=== PATIENT | male | born 1965 | race Caucasian/White ===

== ENCOUNTER 2021-01-29 11:43 | Inpatient (IN) | payer MEDICAID, SELFPAY ==
[2021-01-29] VITALS (7 sets, daily range): BP systolic 106–146; BP diastolic 82–99; PULSE 91–110; RESP 16–22; TEMP 36.7–37.1; O2SAT 94–97; BMI 22.7
--- NOTE | ~2021-01-29 | US_ITS ---
EXAMINATION: US GUIDED PARACENTESIS CLINICAL INFORMATION: Moderate ascites. COMPARISON: None TECHNIQUE: Following explaining ultrasound-guided paracentesis procedure, benefits and risks, a written consent was obtained. Patient was placed supine and preliminary ultrasound imaging was obtained through the 4 quadrants of the abdomen. An optimal site was selected along the right lower quadrant and marked. The marked site was cleaned and draped in usual sterile manner. 1% lidocaine was injected at puncture site. Through a small skin incision a 5-Irish dermSearcheh catheter was advanced into the peritoneal space. After observing fluid return, stylet was withdrawn and catheter connected to vacuum bottle via a connecting cannula. After obtaining all fluid and observing no more fluid return, the catheter was removed with complete hemostasis achieved at puncture site. Patient tolerated procedure extremely well. Sterile dressing applied postprocedure. FINDINGS: On preliminary ultrasound imaging, there is [id number] ascites noted. Approximately 4.65 L of clear yellowish fluid was drained from the right lower quadrant. Part of this fluid was sent to lab for further analysis. US/US paracentesis abd w/image IMPRESSION: Successful ultrasound-guided paracentesis with approximately 4.65 L of clear yellowish fluid drained.
--- NOTE | ~2021-01-29 | CT_ITS ---
EXAMINATION: CT ABDOMEN AND PELVIS WITH CONTRAST CLINICAL INFORMATION: Abdominal pain ascites and jaundice. COMPARISON: None TECHNIQUE: Multidetector volumetric images were obtained from the superior aspect of the liver through the pubic symphysis following administration 85 mL of Omnipaque 350 intravenous contrast. Sagittal and coronal reformatted images were obtained on the technologist's workstation. Oral contrast: No This CT examination was performed using dose optimization techniques as appropriate, variously including the following: *Automated exposure control *Adjustment of mA and/or kV according to patient size (this includes techniques or standardized protocols for targeted exams where dose is matched to indication/reason for exam; i.e. extremities or head) *Use of iterative reconstruction technique DLP: 484 mGy-cm FINDINGS: LUNG BASES: There is minimal atelectatic changes in the right lung base with minimal pleural effusion or pleural thickening. Heart size is normal. LIVER, GALLBLADDER, AND BILIARY TREE: The liver is normal size, diffusely attenuated with mild lobulated contour. The liver is heterogeneous with no definite focal mass seen. The portal vein and the splenic vein is patent. The hepatic vein is patent as well. There is a large amount of ascites. The gallbladder is unremarkable with no evidence of radiopaque gallstones, gallbladder wall thickening, or obvious pericholecystic inflammatory changes. PANCREAS: Unremarkable. SPLEEN: Unremarkable. ADRENAL GLANDS: Unremarkable. KIDNEYS AND URETERS: The kidneys are normal in size, shape, and attenuation. No hydronephrosis, hydroureter, or calculi seen. No perinephric stranding. BLADDER: Unremarkable. GASTROINTESTINAL TRACT: There is scattered stool and gas seen throughout the colon without any significant distention. There is mild mural thickening involving the entire colon. The small bowel loops are normal caliber. Appendix is not visualized. There is large amount of ascites. No free air. ABDOMINAL WALL: No significant hernia is appreciated. LYMPH NODES: Normal. VASCULAR: Unremarkable. PELVIC VISCERA: Mild thickening of the rectum and the sigmoid colon. OSSEOUS STRUCTURES: No lytic or sclerotic process seen. There is mild ventral spondylosis L3-L4, L4-L5 disc level. CT/CT abdomen pelvis w con IMPRESSION: Diffuse heterogeneous liver with slightly lobulated liver contour and diffuse large ascites. Minimal right lower lobe atelectasis with underlying small right pleural effusion. Diffuse colonic mural thickening, nonspecific. Question inflammatory or infectious colitis. No pericolic fat stranding seen however limited in visualization
--- NOTE | 2021-01-29 12:18 | ECG_ITS ---
Test Reason : ABD PAIN Blood Pressure : / mmHG Vent. Rate : 090 BPM Atrial Rate : 090 BPM P-R Int : 128 ms QRS Dur : 092 ms QT Int : 406 ms P-R-T Axes : 033 032 065 degrees QTc Int : 496 ms Normal sinus rhythm Low voltage QRS Nonspecific T wave abnormality Prolonged QT Abnormal ECG No previous ECGs available Referred By: Janina Johns Electronically Signed By:CARLOS ROCK
--- NOTE | 2021-01-29 12:29 | ED.ABDPAIN ---
HPI - Abdominal Pain General Chief Complaint: Abdominal Pain Stated Complaint: abd issues Time Seen by Provider: 01/29/21 12:17 Source: patient Mode of arrival: ambulatory Limitations: no limitations History of Present Illness HPI narrative: drinks vodka daily, swollen eyes, feet, yellow eyes x 1.5 months has not been to a doctor since he was a child, family had a hard time getting him here, no APAP at home MD elicited complaint: abdominal pain Pertinent past history: other (heavy drinkiner) Onset (ago): month(s) (1.5) Pain Consistency: constant Location: diffuse Severity: moderate Quality: aching Radiation: none Migration to: no migration Exacerbating factors: movement Relieving factors: nothing Context: other (alcoholism) Associated symptoms: nausea and other (LE swelling, yellow eyes) Related Data Home Medications Medication Instructions Recorded Confirmed No Known Home Meds 01/29/21 01/29/21 Allergies Allergy/AdvReac Type Severity Reaction Status Date / Time No Known Allergies Allergy Verified 01/29/21 11:49 Review of Systems Review of Systems Constitutional : No Weight loss, No Fever, No Chills ENT/Mouth : No sore throat, No Rhinorrhea Eyes: No Swelling, No Redness, pos scleral icterus Cardiovascular : No Chest Pain, No SOB, pos Edema Respiratory : No Cough, No Sputum, No Wheezing Gastrointestinal : no Nausea, no Vomiting, no Diarrhea, positive abdominal Pain, No Hematochezia, No Melena Genitourinary : No Dysuria, No Urinary Frequency, No Hematuria, No Urgency Musculoskeletal : No joint pain, No Myalgias, No Joint Swelling Skin : No Skin Lesions, No rash Neuro : No Weakness, No Numbness, No Dizziness, No Headache Psych : No Anxiety/Panic, No Depression Heme/Lymph: No Bruising, No Lymphadenopathy Endocrine : No Polyuria, No Polydipsia All other systems reviewed and are negative. Physical Exam Vital Signs: Vital Signs: Last Vital Signs Temp 98.1 F 01/29/21 15:55 Pulse 91 01/29/21 15:55 Resp 18 01/29/21 15:55 BP 114/82 01/29/21 15:55 Pulse Ox 95 01/29/21 15:55 Body Mass Index 22.7 Appearance: Alert. Oriented X3. No acute distress. Anxious Eyes: Pupils equal, round and reactive to light. scleral icterus ENT: Pharynx normal. Neck: Normal inspection. Neck supple. CVS: Normal heart rate and rhythm. Pulses normal. Respiratory: No respiratory distress. Breath sounds normal. Abdomen: Soft and distended with ascites, no sig pain no rebound or guarding Skin: Skin warm and dry. Normal skin color. Normal skin turgor. Extremities: trace bilateral pitting lower extremity edema. No calf ttp Neuro: Oriented X 3. No motor deficit. No sensory deficit. Course Course Course Narrative: lactic acidosis due to liver dysfunction, ETOH abuse and not infection or severe sepsis agrees to stay overnight for further workup I don't think he will be able to follow up as outpatient as he has not seen a doctor in about 30 years MDM - Abdominal Pain MDM Narrative Medical decision making narrative: 56 yo male with no known PMH because he hasn't been to the doctors since childhood comes in with c/o ETOH use, jaundice, swollen abdomen x 1.5 months he finally agreed to get checked out today. At this time labs, CT scan for mass ordered. Likely cirrhosis due to ETOH. Will likely need admission dispo per results and workup Lab Data Result diagrams: 01/29/21 13:01 01/29/21 13:01 Labs: Lab Results 01/29/21 01/29/21 01/29/21 Range/Units 13:01 13:01 13:01 WBC 10.6 (4.8-10.8) X10*3/uL RBC 4.32 L (4.60-5.80) X10*6/uL Hgb 15.9 (14.0-18.0) g/dl Hct 45.3 (42-52) % MCV 104.9 H (80-98) fL MCH 36.8 H (27.0-33.0) pg MCHC 35.1 (31.0-36.0) g/dl RDW 13.8 (11.0-16.0) % Plt Count 155 L (160-400) X10*3/uL MPV 11.4 (9.4-12.4) fL Immature Gran % (Auto) 0.6 H (0.0-0.4) % Neut % (Auto) 67.5 (45-73) % Lymph % (Auto) 21.4 (20-40) % [place] % (Auto) 9.6 (2-11) % Eos % (Auto) 0.1 (0-4) % Baso % (Auto) 0.8 (0-2) % Lymph # (Auto) 2.3 (1.2-4.9) X10*3/uL [place] # (Auto) 1.0 (0.1-1.2) X10*3/uL Eos # (Auto) 0.0 (0.0-0.4) X10*3/uL Baso # (Auto) 0.1 (0.0-0.2) X10*3/uL Abs Immat Gran (auto) 0.06 H (0.00-0.03) X10*3/uL Absolute Neuts (auto) 7.2 (2.0-8.3) X10*3/uL Absolute Nucleated RBC 0.000 (0.0-0.012) X10*3/uL Nucleated RBC % (auto) 0.0 (0.0-0.2) /100WBC PT 13.0 (9.9-13.0) SEC INR 1.1 (0.9-1.1) APTT 33.5 (24.1-38.0) SEC Sodium 137 (135-145) mmol/L Potassium 3.4 (3.3-5.1) mmol/L Chloride 94 L (96-108) mmol/L Carbon Dioxide 31 H (22-29) mmol/L Anion Gap 15 (12-20) BUN 6 L (9-16) mg/dL Creatinine 0.62 (0.5-1.4) mg/dL Estim Creat Clear Calc 125.2 Estimated GFR > 60 Random Glucose 128 H (60-115) mg/dL Lactic Acid (0.5-2.0) mmol/L Calcium 8.2 L (8.4-10.2) mg/dL Magnesium 1.7 (1.6-2.6) mg/dL Total Bilirubin 3.3 H (0.0-1.0) mg/dL Direct Bilirubin 1.8 H (0.0-0.5) mg/dL AST 189 H (5-37) U/L ALT 50 H (0-40) U/L Alkaline Phosphatase 302 H (39-117) U/L Ammonia (13-55) umol/L Lactate Dehydrogenase 395 H (118-273) U/L Total Protein 6.2 L (6.5-8.0) g/dL Albumin 2.8 L (3.5-5.0) g/dL Lipase 86 H (8-78) U/L Acetaminophen < 1 (<30) mcg/mL Ethyl Alcohol mg/dL COVID-19 ([facility]) (Negative) COVID-19 Clin Com 01/29/21 01/29/21 01/29/21 Range/Units 13:01 13:01 13:01 WBC (4.8-10.8) X10*3/uL RBC (4.60-5.80) X10*6/uL Hgb (14.0-18.0) g/dl Hct (42-52) % MCV (80-98) fL MCH (27.0-33.0) pg MCHC (31.0-36.0) g/dl RDW (11.0-16.0) % Plt Count (160-400) X10*3/uL MPV (9.4-12.4) fL Immature Gran % (Auto) (0.0-0.4) % Neut % (Auto) (45-73) % Lymph % (Auto) (20-40) % [place] % (Auto) (2-11) % Eos % (Auto) (0-4) % Baso % (Auto) (0-2) % Lymph # (Auto) (1.2-4.9) X10*3/uL [place] # (Auto) (0.1-1.2) X10*3/uL Eos # (Auto) (0.0-0.4) X10*3/uL Baso # (Auto) (0.0-0.2) X10*3/uL Abs Immat Gran (auto) (0.00-0.03) X10*3/uL Absolute Neuts (auto) (2.0-8.3) X10*3/uL Absolute Nucleated RBC (0.0-0.012) X10*3/uL Nucleated RBC % (auto) (0.0-0.2) /100WBC PT (9.9-13.0) SEC INR (0.9-1.1) APTT (24.1-38.0) SEC Sodium (135-145) mmol/L Potassium (3.3-5.1) mmol/L Chloride (96-108) mmol/L Carbon Dioxide (22-29) mmol/L Anion Gap (12-20) BUN (9-16) mg/dL Creatinine (0.5-1.4) mg/dL Estim Creat Clear Calc Estimated GFR Random Glucose (60-115) mg/dL Lactic Acid 3.6 H* (0.5-2.0) mmol/L Calcium (8.4-10.2) mg/dL Magnesium (1.6-2.6) mg/dL Total Bilirubin (0.0-1.0) mg/dL Direct Bilirubin (0.0-0.5) mg/dL AST (5-37) U/L ALT (0-40) U/L Alkaline Phosphatase (39-117) U/L Ammonia 36 (13-55) umol/L Lactate Dehydrogenase (118-273) U/L Total Protein (6.5-8.0) g/dL Albumin (3.5-5.0) g/dL Lipase (8-78) U/L Acetaminophen (<30) mcg/mL Ethyl Alcohol mg/dL COVID-19 ([facility]) Negative (Negative) COVID-19 Clin Com See Note 01/29/21 Range/Units 13:01 WBC (4.8-10.8) X10*3/uL RBC (4.60-5.80) X10*6/uL Hgb (14.0-18.0) g/dl Hct (42-52) % MCV (80-98) fL MCH (27.0-33.0) pg MCHC (31.0-36.0) g/dl RDW (11.0-16.0) % Plt Count (160-400) X10*3/uL MPV (9.4-12.4) fL Immature Gran % (Auto) (0.0-0.4) % Neut % (Auto) (45-73) % Lymph % (Auto) (20-40) % [place] % (Auto) (2-11) % Eos % (Auto) (0-4) % Baso % (Auto) (0-2) % Lymph # (Auto) (1.2-4.9) X10*3/uL [place] # (Auto) (0.1-1.2) X10*3/uL Eos # (Auto) (0.0-0.4) X10*3/uL Baso # (Auto) (0.0-0.2) X10*3/uL Abs Immat Gran (auto) (0.00-0.03) X10*3/uL Absolute Neuts (auto) (2.0-8.3) X10*3/uL Absolute Nucleated RBC (0.0-0.012) X10*3/uL Nucleated RBC % (auto) (0.0-0.2) /100WBC PT (9.9-13.0) SEC INR (0.9-1.1) APTT (24.1-38.0) SEC Sodium (135-145) mmol/L Potassium (3.3-5.1) mmol/L Chloride (96-108) mmol/L Carbon Dioxide (22-29) mmol/L Anion Gap (12-20) BUN (9-16) mg/dL Creatinine (0.5-1.4) mg/dL Estim Creat Clear Calc Estimated GFR Random Glucose (60-115) mg/dL Lactic Acid (0.5-2.0) mmol/L Calcium (8.4-10.2) mg/dL Magnesium (1.6-2.6) mg/dL Total Bilirubin (0.0-1.0) mg/dL Direct Bilirubin (0.0-0.5) mg/dL AST (5-37) U/L ALT (0-40) U/L Alkaline Phosphatase (39-117) U/L Ammonia (13-55) umol/L Lactate Dehydrogenase (118-273) U/L Total Protein (6.5-8.0) g/dL Albumin (3.5-5.0) g/dL Lipase (8-78) U/L Acetaminophen (<30) mcg/mL Ethyl Alcohol 288 mg/dL COVID-19 ([facility]) (Negative) COVID-19 Clin Com ECG Data Attestation: I personally reviewed and interpreted this ECG as follows: ECG interpretation date: 01/29/21 ECG interpretation time: 14:45 Interpretation: Rate: 90 Rhythm: NSR Mcconnell:normal Normal P waves. Normal LAVONNE. Normal QRS complex. ST T wave : nonspecific, no BYRON qTC: prolonged prior studies: none The study has been interpreted contemporaneously by me. . Discharge Plan Discharge Clinical Impression: Abdominal pain, Cirrhosis, Alcohol intoxication, Elevated LFTs Patient Disposition: Admitted As Inpatient Prescriptions: No Action No Known Home Meds RF: 0 PMFSH Past Medical History Attestation statement: The following information was validated with the patient. Medical History ETOH abuse Smoker Social History Social History (Updated 01/29/21 @ 12:34 by Janina Johns DO) Alcohol intake: current Alcohol intake frequency: 3 or more drinks per day Alcohol type: hard liquor Patient Tobacco Use Status: Current everyday Tobacco user Use of substances other than those prescribed or required for medical reasons: Yes Advance Directives: No Advance Directives Information Provided: No
[2021-01-29 13:08] LABS: MANUAL DIFF FLAG NO
[2021-01-29 13:09] LABS: Basophils Absolute Auto 0.1 X10*3/uL (0.0-0.2); Basophils Percent Auto 0.8 % (0-2); Eosinophils Percent Auto 0.1 % (0-4); Hematocrit 45.3 % (42-52); Hemoglobin 15.9 g/dl (14.0-18.0); Imm Gran Abs Auto 0.06 X10*3/uL (0.00-0.03); Imm Gran Pct Auto 0.6 % (0.0-0.4); Lymphocytes Absolute Auto 2.3 X10*3/uL (1.2-4.9); Lymphocytes Percent Auto 21.4 % (20-40); Mean Corpuscular HGB Conc 35.1 g/dl (31.0-36.0); Mean Corpuscular Hemoglobin 36.8 pg (27.0-33.0); Mean Corpuscular Volume 104.9 fL (80-98); Mean Platelet Volume 11.4 fL (9.4-12.4); Monocytes Percent Auto 9.6 % (2-11); Neutrophils Absolute Auto 7.2 X10*3/uL (2.0-8.3); Neutrophils Percent Auto 67.5 % (45-73); Platelet Count 155 X10*3/uL (160-400); Red Blood Count 4.32 X10*6/uL (4.60-5.80); Red Cell Distribution Width 13.8 % (11.0-16.0); White Blood Count 10.6 X10*3/uL (4.8-10.8)
[2021-01-29] MEDS: Thiamine HCL 100 MG in 0.9 % Sodium Chloride 100 ML 202 MG IV (13:11)
[2021-01-29 13:15] LABS: INTERNATIONAL NORM RATIO 1.1 (0.9-1.1)
[2021-01-29 13:17] LABS: Ammonia 36 umol/L (13-55)
[2021-01-29 13:18] LABS: Partial Thromboplastin Time 33.5 SEC (24.1-38.0)
--- NOTE | 2021-01-29 13:19 | PC.NURSE ---
Pt reports ongoing diffuse abd pain over past 1 1/2 month with occasional vomiting and loose stool. Abd is distended. Sclera is midly jaundiced, new per g/f at bedside.
[2021-01-29 13:26] LABS: Lactic Acid 3.6 mmol/L (0.5-2.0)
[2021-01-29 13:28] LABS: COVID-19 Test Negative (Negative); Ethanol 288 mg/dL
[2021-01-29 13:38] LABS: Acetaminophen LAB < 1 mcg/mL (<30); Alanine Aminotransferase 50 U/L (0-40); Albumin Level 2.8 g/dL (3.5-5.0); Alkaline Phosphatase 302 U/L (39-117); Anion Gap 15 (12-20); Aspartate Amino Transferase 189 U/L (5-37); Bilirubin Direct 1.8 mg/dL (0.0-0.5); Bilirubin Total 3.3 mg/dL (0.0-1.0); Blood Urea Nitrogen 6 mg/dL (9-16); Calcium 8.2 mg/dL (8.4-10.2); Carbon Dioxide 31 mmol/L (22-29); Chloride 94 mmol/L (96-108); Creatinine Clr Calc Pharmacy 125.2; Estimated Glomerular Filt Rate > 60; Glucose Random 128 mg/dL (60-115); Lactate Dehydrogenase 395 U/L (118-273); Lipase 86 U/L (8-78); Magnesium 1.7 mg/dL (1.6-2.6); Potassium 3.4 mmol/L (3.3-5.1); Sodium 137 mmol/L (135-145); Total Protein 6.2 g/dL (6.5-8.0)
[2021-01-29] MEDS: Folic Acid 1 MG in 0.9 % Sodium Chloride 50 ML 100.4 MG IV (14:03)
[2021-01-29] MEDS: iohexoL 350 MG/ML 100 ML INFUS..BTL 85 ML IV (14:40)
[2021-01-29 15:05] LABS: Reflex Lactate? Lactic Acid Added
[2021-01-29] MEDS: Magnesium Sulfate/H2O 2 GM/50 ML PIGGYBACK IV (15:07)
[2021-01-29] MEDS: 0.9 % Sodium Chloride 500 ML IV (15:10)
[2021-01-29 16:05] LABS: ~Lactic Acid-LAB USE ONLY 3.5 mmol/L (0.5-2.0)
[2021-01-29] MEDS: PHENobarbitaL sodium 130 MG/ML VIAL 210 MG IM (16:41)
--- NOTE | 2021-01-29 16:53 | P.HPHOSP_ITS ---
History of Present Illness Date of Service: 01/29/21 Chief Complaint: Abdominal Discomfort 56 year male who reports no chronic medical issues who presents with abdominal discomfort, enlarged belly and lately has been having kevin color stools. He is chronic, daily alcohol cosumer and drink anywhere 5 to 10 shots of vodka but girlfriend think probably much more. He actually drank just before coming in. He reports no fever or chill. Work up in ED shows grossly abnormal liver enzymes of alcoholic liver dease pattern. A CT of the abdomen and pelvis show Diffuse heterogeneous liver with slightly lobulated liver contour and diffuse large ascites. and diffuse colonic thickening that is non-specific. His electrolytes are ok. He is not confused and ammonia level is normal. Review of Systems Review of Systems: Gen: no fever Resp: no sob, no cough CV: no chest, no WOODALL, no leg edema GI: No n/v,+abdominal dicomfort Neuro: No confusion all other systems reviewed and are negative. [facility] Medical History ETOH abuse Smoker Family History (Updated 01/29/21 @ 17:01 by Titus Orona MD) Father CAD (coronary artery disease) Pertinent family history: Father with CAD, denies alcoholism in family Social History Household Members: Significant Other Housing: Apartment Do you presently have visiting nurse or other home services: No Alcohol intake: current Alcohol intake frequency: 3 or more drinks per day Alcohol type: hard liquor Patient Tobacco Use Status: Current everyday Tobacco user Tobacco use type: Cigarette Cigarette Packs Per Day: 1 Cigarettes Per Day: 20.0 Smoked in Last 30 Days: Yes Patient Interested in Nicotine Replacement: No (educated patient) Use of substances other than those prescribed or required for medical reasons: No Currently Displaying Signs/Symptoms of Drug Intoxication Withdrawal: No Have you been hit, kicked, punched, or otherwise hurt by someone within the past year? If so, by whom?: No Do you feel safe in your current relationship?: Yes Is there a partner from a previous relationship who is making you feel unsafe now?: No Are you made to feel afraid or neglected: No Advance Directives: No Advance Directives Information Provided: No Do you have thoughts of harming others: None Do you have a plan to hurt others: No Plan Recently lost weight without trying: Yes How much weight loss: 2-13 pounds Eating poorly because of decreased appetite: Yes Nutrition screen score: 4 Nutrition Risks: No Nutritional Risk service: No Current occupational status: unemployed Meds Allergies Allergy/AdvReac Type Severity Reaction Status Date / Time No Known Allergies Allergy Verified 01/29/21 11:49 Active Medications: Current Medications Generic Name Dose Route Start Last Admin Trade Name Freq PRN Reason Stop Dose Admin Medication 1 each 01/29/21 16:19 No Benzodiazepines MISCELLANE DAILY [facility] Pharmacy Consult 1 each 01/29/21 12:18 Consult Rx Perform Med Rec MISCELLANE ONCE PRN Consult order Phenobarbital 45 mg 01/30/21 09:00 Phenobarbital 15 Mg Tablet PO 01/31/21 21:01 BID [facility] Protocol Phenobarbital 30 mg 02/01/21 09:00 Phenobarbital 30 Mg Tablet PO 02/02/21 21:01 BID [facility] Protocol Phenobarbital 30 mg 02/03/21 09:00 Phenobarbital 30 Mg Tablet PO 02/04/21 09:01 DAILY [facility] Protocol Phenobarbital Sodium 158 mg 01/29/21 19:30 Phenobarbital Sodium 130 Mg/Ml Vial IM 01/29/21 22:31 Q3H [facility] Protocol Home Medications Medication Instructions Recorded Confirmed Last Taken Type No Known Home Meds 01/29/21 01/29/21 Unknown History Physical Exam Vital Signs and Narrative: Vital Signs: Last Vital Signs Temp 98.1 F 01/29/21 15:55 Pulse 91 01/29/21 15:55 Resp 18 01/29/21 15:55 BP 114/82 01/29/21 15:55 Pulse Ox 95 01/29/21 15:55 Body Mass Index 22.7 Constitutional Awake and Alert, No apparent distress HEENT-mild sclera icteris Neck Supple, No lymphadenopathy Cardiovascular RRR, No M/R/G, S1 S2, No S3 S4, No pedal edema Respiratory Lungs clear, No respiratory distress Gastrointestinal Non tender, distended, positive fluid wave Skin No rash Neurological Alert & oriented x3 Psychological Appropriate affect Results Labs CBC and Chem 7: 01/29/21 13:01 01/29/21 13:01 Labs: Laboratory Results - last 24 hr 01/29/21 01/29/21 01/29/21 13:01 13:01 13:01 MCV 104.9 H MCH 36.8 H MCHC 35.1 RDW 13.8 Plt Count 155 L MPV 11.4 Immature Gran % (Auto) 0.6 H Neut % (Auto) 67.5 Lymph % (Auto) 21.4 [place] % (Auto) 9.6 Eos % (Auto) 0.1 Baso % (Auto) 0.8 Lymph # (Auto) 2.3 [place] # (Auto) 1.0 Eos # (Auto) 0.0 Baso # (Auto) 0.1 Abs Immat Gran (auto) 0.06 H Absolute Neuts (auto) 7.2 Absolute Nucleated RBC 0.000 Nucleated RBC % (auto) 0.0 PT 13.0 INR 1.1 APTT 33.5 Anion Gap 15 Estim Creat Clear Calc 125.2 Estimated GFR > 60 Random Glucose 128 H Lactic Acid Lactic Acid Fup @ 2Hr Calcium 8.2 L Magnesium 1.7 Total Bilirubin 3.3 H Direct Bilirubin 1.8 H AST 189 H ALT 50 H Alkaline Phosphatase 302 H Ammonia Lactate Dehydrogenase 395 H Total Protein 6.2 L Albumin 2.8 L Lipase 86 H Acetaminophen < 1 Ethyl Alcohol COVID-19 ([facility]) COVID-in3Dgallery 01/29/21 01/29/21 01/29/21 13:01 13:01 13:01 MCV MCH MCHC RDW Plt Count MPV Immature Gran % (Auto) Neut % (Auto) Lymph % (Auto) [place] % (Auto) Eos % (Auto) Baso % (Auto) Lymph # (Auto) [place] # (Auto) Eos # (Auto) Baso # (Auto) Abs Immat Gran (auto) Absolute Neuts (auto) Absolute Nucleated RBC Nucleated RBC % (auto) PT INR APTT Anion Gap Estim Creat Clear Calc Estimated GFR Random Glucose Lactic Acid 3.6 H* Lactic Acid Fup @ 2Hr Calcium Magnesium Total Bilirubin Direct Bilirubin AST ALT Alkaline Phosphatase Ammonia 36 Lactate Dehydrogenase Total Protein Albumin Lipase Acetaminophen Ethyl Alcohol COVID-19 ([facility]) Negative COVID-in3[facility]gallery See Note 01/29/21 01/29/21 13:01 15:28 MCV MCH MCHC RDW Plt Count MPV Immature Gran % (Auto) Neut % (Auto) Lymph % (Auto) [place] % (Auto) Eos % (Auto) Baso % (Auto) Lymph # (Auto) [place] # (Auto) Eos # (Auto) Baso # (Auto) Abs Immat Gran (auto) Absolute Neuts (auto) Absolute Nucleated RBC Nucleated RBC % (auto) PT INR APTT Anion Gap Estim Creat Clear Calc Estimated GFR Random Glucose Lactic Acid Lactic Acid Fup @ 2Hr 3.5 H* Calcium Magnesium Total Bilirubin Direct Bilirubin AST ALT Alkaline Phosphatase Ammonia Lactate Dehydrogenase Total Protein Albumin Lipase Acetaminophen Ethyl Alcohol 288 COVID-19 ([facility]) COVID-19 Clin Com Imaging Radiologist's Impressions: Impressions Abdomen/Pelvis CT 01/29/21 12:27 IMPRESSION: Diffuse heterogeneous liver with slightly lobulated liver contour and diffuse large ascites. Minimal right lower lobe atelectasis with underlying small right pleural effusion. Diffuse colonic mural thickening, nonspecific. Question inflammatory or infectious colitis. No pericolic fat stranding seen however limited in visualization Assessment and Plan (1) Abdominal pain: Qualifiers: Abdominal location: generalized Qualified Code(s): R10.84 - Generalized abdominal pain Status: Acute (2) Cirrhosis: Qualifiers: Ascites presence: with ascites Hepatic cirrhosis type: alcoholic cirrhosis Qualified Code(s): K70.31 - Alcoholic cirrhosis of liver with ascites Status: Acute (3) Alcohol intoxication: Qualifiers: Complication of substance-induced condition: uncomplicated Qualified Code(s): F10.920 - Alcohol use, unspecified with intoxication, uncomplicated Status: Acute (4) Elevated LFTs: Status: Acute 56 year old male with alcoholism here with abdominal discofort and found to have a large ascietes, colonic thickening that is nonspecific 1/Ascietes likely from alcohoic liver disease -Paracentesis by IR tomorrow (check cytology, cell count) 2/ Alcohol dependence, high risk for withdrawal -Phenobarbital protocol -Folic acid and thiamine supplement -CARE consult before dc 3/ Cirrhosis with ascites--following paracentesis, will need medical managment with diuretics -GI consult, also to comment on colonic thickening and kevin color stool 4/ Lactic acodis--not due to sepsis but rather d/t Liver disease 5/ thrombocytopenia--mild d/t 6/Elevated blood glucose--check A1C DVT--Heparin starting tomorrow Full code Plan of care discussed with girlfreind at bedside Quality Stroke Does the patient have a stroke diagnosis?: No VTE Prior VTE?: No VTE Risk Level:: Medical - low VTE Device Contraindication: Treatment Not Indicated VTE Drug Contraindication: Treatment Not Indicated
[2021-01-29 17:31] LABS: Reflex Lactate? 2 Y
--- NOTE | 2021-01-29 17:31 | MHC.CARE ---
CARE Team has received consult. Pt will be seen on the med floor for support with substance use by CARE or recovery support tomorrow.
[2021-01-29] MEDS: Melatonin 3 MG TABLET 6 MG PO (18:18)
[2021-01-29 18:19] LABS: ~Lactic Acid-LAB USE ONLY 3.5 mmol/L (0.5-2.0)
[2021-01-29] MEDS: PHENobarbitaL sodium 130 MG/ML VIAL 158 MG IM ×2 (19:29→23:06)
--- NOTE | 2021-01-29 19:33 | PC.NURSE ---
Pt resting on stretcher in NAD, breathing with ease on RA. VSS. Pt aaox4, reports abd pain. Pt aware and agreeable to plan for admission with paracentesis. Pt stretcher in low locked position, rails raised, call lombardi within reach.
--- NOTE | 2021-01-29 19:44 | PC.NURSE ---
dr pat TT with pt's c/o 11/22 pain requesting meds. awaiting reply
[2021-01-29] MEDS: cefTRIAXone sodium 1 GM in 0.9 % Sodium Chloride 50 ML IV (20:42)
[2021-01-29] MEDS: Morphine Sulfate 2 MG/ML CARTRIDGE 1 MG IVPUSH (20:42)
[2021-01-29] MEDS: ondansetron HCL 4 MG/2 ML VIAL IVPUSH (23:06)
--- NOTE | 2021-01-29 23:17 | MHC.CM.PN ---
CM met with admitted patient, with bed pending room 383. Pt quite ill, nausea and vomiting. RN aware. Will medicate. ETOH misuse. Pt informed that recovery services/support will meet with him in hospital. Pt concerned about lack of insurance. Pt unemployed. Fax sent with face sheet to financial services to assist pt. Pt refused to complete HCP at this time, but may complete when patient feels better. No PCP. No COVID VACCINES. No health insurance. Lives with S.O. Estela Taylor ([phone]). D/C plan is home. Possible addiction services for ETOH abuse. Transportation by Estela. CM to follow for d/c needs.
[2021-01-30] MEDS: 0.9 % Sodium Chloride Flush 3 ML SYRINGE IVFLUSH ×3 (00:08→20:02)
[2021-01-30 04:00] VITALS: BP 122/91; PULSE 91; RESP 20; TEMP 36.2; O2SAT 93
[2021-01-30 06:42] LABS: Alanine Aminotransferase 41 U/L (0-40); Albumin Level 2.4 g/dL (3.5-5.0); Alkaline Phosphatase 266 U/L (39-117); Aspartate Amino Transferase 140 U/L (5-37); Bilirubin Direct 2.2 mg/dL (0.0-0.5); Bilirubin Total 3.8 mg/dL (0.0-1.0); Total Protein 5.3 g/dL (6.5-8.0)
[2021-01-30 07:47] VITALS: BP 126/92; PULSE 96; RESP 17; TEMP 36.8; O2SAT 91
[2021-01-30] MEDS: Thiamine HCL 100 MG TABLET PO (09:07)
[2021-01-30] MEDS: Folic Acid 1 MG TABLET PO (09:07)
[2021-01-30] MEDS: PHENobarbitaL 15 MG TABLET 45 MG PO ×2 (09:07→20:02)
--- NOTE | 2021-01-30 09:09 | CONS_ITS ---
DATE OF SERVICE: 01/30/2021 REFERRING PHYSICIAN: Titus Orona MD REASON FOR CONSULTATION: Alcoholic hepatitis with ascites. HISTORY OF PRESENT ILLNESS: The patient is a 56-year-old man, who was admitted to the hospital after presenting to the emergency room yesterday with complaints of abdominal swelling for a month and a half. He has a history of heavy alcohol use upwards of a pint of vodka on a daily basis, but is only basis of about how much he actually drinks. Over the last month and a half, he has had abdominal swelling with loss of appetite. He did have some lower extremity swelling over a period of several days. He presented to the emergency room, where he was evaluated. Laboratory studies were obtained, showing elevation of liver function tests in a pattern consistent with alcohol with an AST of 140 and an ALT of 41. Blood alcohol level on admission was 288. Imaging of the abdomen and pelvis is reviewed. This shows a diffusely heterogeneous liver with lobulation without a definite mass. A large amount of ascites is present. Also noted was mild mural thickening involving the entire colon, however, the patient has no symptoms of colitis. He denies any rectal bleeding or change in his bowel habits. He has never undergone colonoscopy. PAST MEDICAL HISTORY: He denies other medical or surgical illnesses. He does not have a primary care provider. MEDICATIONS: On admission, none. ALLERGIES: NONE. FAMILY HISTORY: He denies a family history of liver disease or cirrhosis. SOCIAL HISTORY: He smokes 1 pack of cigarettes per day. He works as an high voltage electrician. Alcohol use is as above. He denies other substance use. REVIEW OF SYSTEMS: SKIN: No pruritus. HEENT: Negative. CARDIOPULMONARY: No shortness of breath or chest pain. GASTROINTESTINAL: As above. GENITOURINARY: Negative. NEUROPSYCHIATRIC: Negative. PHYSICAL EXAMINATION: GENERAL: Shows a pleasant male, somewhat disheveled, lying in bed. VITAL SIGNS: Reviewed in electronic medical record and are stable. SKIN: Anicteric. HEENT: Shows no scleral icterus. NECK: Without lymphadenopathy or thyromegaly. LUNGS: Clear. HEART: Shows regular rate and rhythm. S1, S2. No murmur. ABDOMEN: Distended with ascites. There is no focal guarding, tenderness, or rebound. Bowel sounds are present. EXTREMITIES: Without edema. There is no asterixis. LABORATORY DATA: Laboratory data and CT scanning are reviewed. IMPRESSION: Alcoholic hepatitis with ascites. I discussed with the patient the need to avoid alcohol. At this time, he is scheduled for paracentesis for diagnostic and therapeutic reasons. He will need to start diuretics following this and we will await fluid analysis to rule out SBP. At this time, he does not appear to be actively withdrawing, but given his alcohol level was elevated on admission, he needs to be watched for this. I did discuss with him the need for eventual outpatient elective colonoscopy for followup of the colonic thickening noted on CT scanning as well as for screening purposes. Thanks for asking me to see him. I will follow him in the hospital with you. MD ALYSHA Mcunlty/EDGAR / [phone]
--- NOTE | 2021-01-30 10:15 | HO.PM.IMPN ---
Subjective Subjective Date of Service: 01/30/21 Interval History: F/u acietes, liver failure.. No abd pain this morning. No fever Review of Systems No fever No signs of withdrawal No abdominal pain Physical Exam Vital Signs: Vital Signs: Last Vital Signs Temp 98.3 F 01/30/21 07:47 Pulse 96 01/30/21 07:47 Resp 17 01/30/21 07:47 BP 126/92 H 01/30/21 07:47 Pulse Ox 91 L 01/30/21 07:47 Body Mass Index 22.7 Constitutional Awake and Alert, No apparent distress HEENT-mild sclera icteris Neck Supple, No lymphadenopathy Cardiovascular RRR, No M/R/G, S1 S2, No S3 S4, No pedal edema Respiratory Lungs clear, No respiratory distress Gastrointestinal Non tender, distended, positive fluid wave Skin No rash Neurological Alert & oriented x3 Psychological Appropriate affect Objective Data Active Medications Folic Acid (Folic Acid 1 Mg Tablet) 1 mg PO DAILY [facility] Stop: 02/01/21 09:01 Last Admin: 01/30/21 09:07 Dose: 1 mg Documented by: BONNIE Ceftriaxone Sodium 1 gm/ (Sodium Chloride) 50 mls @ 100 mls/hr IV Q24H [facility] Last Infusion: 01/29/21 23:06 Dose: 0 mls/hr Documented by: CORY Medication (No Benzodiazepines) 1 each MISCELLANE DAILY [facility] Melatonin (Melatonin 3 Mg Tablet) 6 mg PO BEDTIME PRN PRN Reason: insomonia Ondansetron HCl (Ondansetron Hcl 4 Mg/2 Ml Vial) 4 mg IVPUSH Q8H PRN PRN Reason: Nausea and Vomiting Last Admin: 01/29/21 23:06 Dose: 4 mg Documented by: CORY Pharmacy Consult (Consult Rx Perform Med Rec) 1 each MISCELLANE ONCE PRN PRN Reason: Consult order Phenobarbital (Phenobarbital 15 Mg Tablet) 45 mg PO BID [facility]; Protocol Stop: 01/31/21 21:01 Last Admin: 01/30/21 09:07 Dose: 45 mg Documented by: COTALTON Phenobarbital (Phenobarbital 30 Mg Tablet) 30 mg PO BID [facility]; Protocol Stop: 02/02/21 21:01 Phenobarbital (Phenobarbital 30 Mg Tablet) 30 mg PO DAILY [facility]; Protocol Stop: 02/04/21 09:01 Sodium Chloride (0.9 % Sodium Chloride Flush 3 Ml Syringe) 3 ml IVFLUSH QSHIFT [facility] Last Admin: 01/30/21 09:07 Dose: 3 ml Documented by: BONNIE Thiamine HCl (Thiamine Hcl 100 Mg Tablet) 100 mg PO DAILY [facility] Stop: 02/01/21 09:01 Last Admin: 01/30/21 09:07 Dose: 100 mg Documented by: BONNIE Labs CBC & Chem 7: 01/29/21 13:01 01/29/21 13:01 Assessment and Plan (1) Abdominal pain: Status: Acute (2) Cirrhosis: Status: Acute (3) Alcohol intoxication: Status: Acute (4) Elevated LFTs: Status: Acute Assessment and Plan: 56 year old male with alcoholism here with abdominal discofort and found to have a large ascietes, colonic thickening that is nonspecific 1/Ascietes likely from alcohoic liver disease -Paracentesis by IR today (check cytology, cell count) 2/ Alcohol dependence, high risk for withdrawal -Phenobarbital protocol -Folic acid and thiamine supplement -CARE consult before dc 3/ Cirrhosis with ascites--following paracentesis, will need medical managment with diuretics -GI consult, also to comment on colonic thickening and kevin color stool 4/ Lactic acodis--not due to sepsis but rather d/t? Liver disease 5/ thrombocytopenia--mild d/t 6/Elevated blood glucose--check A1C DVT--Heparin starting tomorrow Full code Plan of care discussed with girlfreind at bedside Quality Stroke Does the patient have a stroke diagnosis?: No VTE Prior VTE?: No VTE Risk Level:: Medical - low VTE Device Contraindication: Treatment Not Indicated VTE Drug Contraindication: Treatment Not Indicated
[2021-01-30 12:00] VITALS: BP 129/84; PULSE 104; RESP 16; TEMP 36.4; O2SAT 93
[2021-01-30] MEDS: ondansetron HCL 4 MG/2 ML VIAL IVPUSH (12:08)
[2021-01-30] MEDS: Lidocaine HCl 1 % MPF 5 ML VIAL SUBCUT (13:22)
--- NOTE | 2021-01-30 13:36 | MHC.CLN ---
NUTRITION GIRLFRIEND PRESENT AT VISIT. REPORTED THAT PATIENT HAD BEEN EATING ONLY BITES OF FOOD PRIOR TO ADMISSION, HAD BEEN CONSUMING ALCOHOL. SUSPECTS WEIGHT LOSS BUT UNABLE TO QUANTIFY. PER CONVERSATION, WILL ADD ENSURE 240 ML TID TO PROVIDE 1050 KCAL, 60 G PROTEIN.
[2021-01-30 14:03] LABS: MN% 77.6 %; PMN% 22.4 %; WBC Peritoneal Fluid 0.116 X10*3/uL
[2021-01-30 14:04] LABS: RBC Peritoneal Fluid < 0.002 X10*6/uL
[2021-01-30 14:34] LABS: Neutrophils Peritoneal Fluid 4 %
[2021-01-30 14:35] LABS: BF Shift QC OK YES; Lymphocyte Peritoneal Fl 9 %; Monocytes Peritoneal Fl 6 %; Other Peritioneal Fl 81 %
--- NOTE | 2021-01-30 14:44 | MHC.CM.PN ---
PER MULTIDISCIPLINARY ROUNDS PT IS NOT READY FRO D/C, ANTICIPATE D/C OVER W/E, CM MET W/PT REGARDING LACK OF INSURANCE AND DTR AT BEDSIDE AND REPORTS [employer] HAS COMPLETED [employer] [facility] FOR PT, CM HAS REQUESTED MH STANDARD PLAN IF NOT ALREADY ON IT VIA [employer], PT HAS NO PCP AND HAS RECEIVED LIST FROM [employer]CIAL [employer] THAT ARE COVERED UNDER [employer]. PT TO BE SEEN BY CARE TEAM/DIESEL DINKEY ENGINEER TODAY HOWEVER THEY HAVE NOT BEEN SEEN OF TIME OF THIS NOTE. CM WILL REACH OUT TO RECOVERY TEAM VIA [employer]. CM WILL CONT TO FOLLOW: D/C PLAN HOME SELF-CARE W/FAMILY FOR TRANSPORT
[2021-01-30 16:00] VITALS: BP 118/80; PULSE 93; RESP 16; TEMP 37; O2SAT 93
--- NOTE | 2021-01-30 16:06 | MHC.RECOVRN ---
T/w, along with director nursing service, met with pt in 383 after consult placed to CARE Team. Pts girlfriend, Estela, present. Pt agreeable to discussion regarding substance use with girlfriend present. Upon entering pts room, pt laying in bed, awake and alert. Pt minimally engaged in conversation. Pt reports alcohol use, up to 750 mL vodka, daily, x 7 months. Pt reports having been a social drinker, however, since layoff due COVID, pts alcohol use has increased. Pt has not received treatment in the past for AUD. Pt educated regarding available supports including medications for alcohol use disorder, recovery coaches, IOP, counseling, and CSS level of care. Pts girlfriend educated about supports available to family and loved ones, including [email or web address]. Pt overwhelmed with information and would like time to think about which avenue(s) he would like to take towards recovery. Recovery Stem Dryer Maintainer will f/u with pt tomorrow. Pt given t/w card if questions or concerns arise.
[2021-01-30 19:44] VITALS: BP 117/74; PULSE 98; RESP 18; TEMP 36.9; O2SAT 93
[2021-01-30] MEDS: cefTRIAXone sodium 1 GM in 0.9 % Sodium Chloride 50 ML IV (20:02)
[2021-01-31] VITALS (8 sets, daily range): BP systolic 109–125; BP diastolic 70–79; PULSE 87–96; RESP 14–18; TEMP 36.3–37.1; O2SAT 90–97
[2021-01-31 06:33] LABS: Albumin Peritoneal Fluid 0.5; Glucose Peritoneal Fluid 127; LDH Peritoneal Fluid 71
--- NOTE | 2021-01-31 08:41 | P.DS_ITS ---
DS: Providers Provider Date of Service: 02/01/21 Date of admission: 01/29/21 17:12 Primary care physician: None Physician Consults: 01/29/21 17:13 Consult to Gastroenterology Routine Consulting Provider: Blayne Maldonado Reason for consultation: ascietes, liver diseease, colon thickness Has provider been notified: No 01/29/21 17:18 Consult to Care Team Routine Comment: Reason for consultation: alcoholism DS: Diagnosis Discharge Diagnosis (1) Abdominal pain: Status: Resolved (2) Cirrhosis: Status: Acute (3) Alcohol intoxication: Status: Resolved DS: Summary Hospital Course Hospital Course: Chief Complaint: Abdominal Discomfort 56 year male who reports no chronic medical issues who presents with abdominal discomfort, enlarged belly and lately has been having kevin color stools. He is chronic, daily alcohol cosumer and drink anywhere 5 to 10 shots of vodka but girlfriend think probably much more. He actually drank just before coming in.? He reports no fever or chill. Work up in ED shows grossly abnormal liver enzymes of alcoholic liver dease pattern.? A CT of the abdomen and pelvis show?Diffuse heterogeneous liver with slightly lobulated liver contour and diffuse large ascites. and diffuse colonic thickening that is non-specific.? His electrolytes are ok. He is not confused and ammonia level is normal. Hospital course: 1/Abdominal pain due to tense ascietes, had no fever, no leukocytosis and Parecentesis doesn't show SBP. Presently without pain since paracentesis 2/Ascites from cirrhosis of the lvier from alcohol use--He had diagnostic paracentesis by IR on 01/30/21 with removal of 4.65 liters, agin no evidence of SBP, cytology is pending. He was seen by Dr. Maldonado (GI) and recommend diuretics and to follow up on outpatient basis for colonic thickening seen on CT and to have colonscopy done. He is started on Lasix and Aldatone to control ascietes Patient is not interested in colonoscopy at this time but will consider it in the future. 3/L 3/Alcoholism --CARE team has seen him and given him resources to stop drinking, I reenforced this. 4/Lactic acidosis d/t liver disease, and stable. Time Spent with Patient Time attestation: Total time spent providing and/or coordinating discharge se rvices: Discharge coordination time: Greater than 30 minutes Quality: Stroke Does the patient have a stroke diagnosis?: No Physical Exam Vital Signs: Vital Signs: Last Vital Signs Temp 97.6 F 01/31/21 08:00 Pulse 87 01/31/21 08:00 Resp 16 01/31/21 08:00 BP 125/79 01/31/21 08:00 Pulse Ox 90 L 01/31/21 08:00 Body Mass Index 22.7 DS: Data Data Completed and Pending Pending studies at discharge: Pending at discharge 01/30/21 12:54 Cytology [PTH] Routine Labs on day of discharge: Laboratory Results - last 24 hr 01/30/21 12:36 Peritoneal WBC 0.116 Peritoneal RBC < 0.002 Periton Neutrophils 4 Periton Lymphocytes 9 Peritoneal Monocytes 6 Peritoneal Other Cells 81 Preliminary micro results at discharge 01/29/21 13:17 Blood Culture - Preliminary Blood - Venous No growth after 24 hours. 01/29/21 13:01 Blood Culture - Preliminary Blood - Venous No growth after 24 hours. Discharge Plan Discharge Anticipated Discharge Date/Time: 02/01/21 12:46 Patient Disposition: Home, Self-Care Discharge Diagnosis: Alcoholic hepatitis, cirrhosis of liver, ascietes Referrals: Blayne Maldonado [Physician] - 2 Weeks Physician,Don [Primary Care Provider] - 1 Week Discharge Medications: New spironolactone 25 mg Tablet 25 mg PO DAILY Qty: 30 RF: 0 furosemide 20 mg Tablet 20 mg PO DAILY Qty: 30 RF: 0 Discharge Orders: Discharge Order (Routine); Ordered 01/31/21 Ordered By: Titus Greer Diet: advance to usual diet Activity on Discharge: As tolerated Stand Alone Forms: Patient Portal Discharge page Other Ambulatory Orders: Basic Metabolic Panel (Routine) Timeframe: [id number] Facility: [facility] - Location: Laboratory [facility] Care Plan Goals: complete alcohol cessation Health Concerns: alcoholic liver cirrhosis, ascietes, alcoholic hepatitis Plan of Treatment: take Lasix and Aldactone as recommended, stay away from alcohol Follow up with Dr. Maldonado (GI) for colonoscopy--understand that you don't want colonoscopy right now. Assessment: As above. Discharge Date/Time: 02/01/21 16:06
[2021-01-31] MEDS: Spironolactone 25 MG TABLET PO (08:49)
[2021-01-31] MEDS: Thiamine HCL 100 MG TABLET PO (08:50)
[2021-01-31] MEDS: 0.9 % Sodium Chloride Flush 3 ML SYRINGE IVFLUSH ×2 (08:50→15:47)
[2021-01-31] MEDS: Furosemide 20 MG TABLET PO (08:50)
[2021-01-31] MEDS: Folic Acid 1 MG TABLET PO (08:50)
[2021-01-31] MEDS: PHENobarbitaL 15 MG TABLET 45 MG PO ×2 (08:50→20:48)
--- NOTE | 2021-01-31 10:40 | MHC.RECOVSUP ---
Recovery Support note: Patient is a 56 year old [place] speaking male who presented to [facility] ED due to a distended abdomen and daily alcohol consumption. Patient was seen by the Recovery Support RN and this leader writer followed up with patient to continue the discussion regarding his recovery and to provide resources. Patient was accompanied by his partner during consultation. Patient was minimally engaged in discussion however was receptive to reviewing resources. Patient reports no questions regarding what the RSRN discussed with him yesterday. Patient is still unclear of what he will choose to do to support his recovery. This leader writer discussed AA, IOP, [facility] [place] and Recovery Coaching, outpatient therapy and medications for alcohol use disorder. Resources were provided on these supports. Patient's partner asked about residential programs and these were discussed and resources were provided. Patient and partner report no questions or concerns at this time. Provided patient with the contact number for this leader writer in the event that he has additional questions later on.
--- NOTE | 2021-01-31 13:45 | MHC.CM.PN ---
CM MET WITH PT AND HIS S/O WHO WAS AT BEDSIDE.THEY REPORTS [facility] SENT THE PT A FORM HE NEEDED TO SIGN AND SEND BACK TO GET HIS INSURANCE ACTIVATED HOWEVER THEY DO NOT HAVE A PRINTER. PTS S/O FORWARDED THE FORM TO CM FOR PRINTING. PT COMPLETED THE FORM AND CM FAXED IT TO [facility]. PT IS AWARE ONCE THE INSURANCE IS ACTIVE, HE MUST CHOOSE A PCP. PT HAS BEEN PROVIDED WITH A NEW PCP LIST. CURRENT DC PLAN IS HOME WITH RESOURCES PROVIDED BY REC[facility]ERY [facility] PTS S/O TO TRANSPORT
[2021-01-31 15:29] LABS: Alanine Aminotransferase 28 U/L (0-40); Albumin Level 2.1 g/dL (3.5-5.0); Alkaline Phosphatase 233 U/L (39-117); Anion Gap 7 (12-20); Aspartate Amino Transferase 84 U/L (5-37); Bilirubin Direct 1.8 mg/dL (0.0-0.5); Bilirubin Total 2.9 mg/dL (0.0-1.0); Blood Urea Nitrogen 8 mg/dL (9-16); Calcium 7.5 mg/dL (8.4-10.2); Carbon Dioxide 37 mmol/L (22-29); Chloride 89 mmol/L (96-108); Creatinine Clr Calc Pharmacy 127.2; Estimated Glomerular Filt Rate > 60; Glucose Random 125 mg/dL (60-115); Potassium 3.1 mmol/L (3.3-5.1); Sodium 130 mmol/L (135-145); Total Protein 4.8 g/dL (6.5-8.0)
--- NOTE | 2021-01-31 16:43 | HO.PM.IMPN ---
Subjective Subjective Date of Service: 01/31/21 Interval History: f/u on alcoholic hepatitis, ascietes. No abd pain Review of Systems Gen: no fever Resp: no sob, no cough CV: no chest, no WOODALL, no leg edema GI: No n/v, no abd pain Neuro: No confusion Physical Exam Vital Signs: Vital Signs: Last Vital Signs Temp 98.7 F 01/31/21 15:40 Pulse 93 01/31/21 15:40 Resp 18 01/31/21 15:40 BP 109/70 01/31/21 15:40 Pulse Ox 92 01/31/21 15:40 Body Mass Index 22.7 General: AO X 3, no acute distress Resp: CTA bilateral CVS: S1,S2,RRR GI: +BS, NT, no distention, minimal sings of ascites Skin: No rash Neuro: motor grossly intact Psych: appropriate affect Objective Data Active Medications Folic Acid (Folic Acid 1 Mg Tablet) 1 mg PO DAILY [facility] Stop: 02/01/21 09:01 Last Admin: 01/31/21 08:50 Dose: 1 mg Documented by: DELILAH Furosemide (Furosemide 20 Mg Tablet) 20 mg PO DAILY [facility]; Protocol Last Admin: 01/31/21 08:50 Dose: 20 mg Documented by: DELILAH Medication (No Benzodiazepines) 1 each MISCELLANE DAILY [facility] Melatonin (Melatonin 3 Mg Tablet) 6 mg PO BEDTIME PRN PRN Reason: insomonia Ondansetron HCl (Ondansetron Hcl 4 Mg/2 Ml Vial) 4 mg IVPUSH Q8H PRN PRN Reason: Nausea and Vomiting Last Admin: 01/30/21 12:08 Dose: 4 mg Documented by: BONNIE Pharmacy Consult (Consult Rx Perform Med Rec) 1 each MISCELLANE ONCE PRN PRN Reason: Consult order Phenobarbital (Phenobarbital 15 Mg Tablet) 45 mg PO BID [facility]; Protocol Stop: 01/31/21 21:01 Last Admin: 01/31/21 08:50 Dose: 45 mg Documented by: DELILAH Phenobarbital (Phenobarbital 30 Mg Tablet) 30 mg PO BID [facility]; Protocol Stop: 02/02/21 21:01 Phenobarbital (Phenobarbital 30 Mg Tablet) 30 mg PO DAILY [facility]; Protocol Stop: 02/04/21 09:01 Potassium Chloride (Potassium Chloride Er 20 Meq Tab.Er.Prt) 40 meq PO ONCE ONE Stop: 01/31/21 16:43 Sodium Chloride (0.9 % Sodium Chloride Flush 3 Ml Syringe) 3 ml IVFLUSH QSHIFT [facility] Last Admin: 01/31/21 15:47 Dose: 3 ml Documented by: MAY Spironolactone (Spironolactone 25 Mg Tablet) 25 mg PO DAILY [facility]; Protocol Last Admin: 01/31/21 08:49 Dose: 25 mg Documented by: DELILAH Thiamine HCl (Thiamine Hcl 100 Mg Tablet) 100 mg PO DAILY [facility] Stop: 02/01/21 09:01 Last Admin: 01/31/21 08:50 Dose: 100 mg Documented by: DELILAH Labs CBC & Chem 7: 01/29/21 13:01 01/31/21 14:48 Labs: Laboratory Results - last 24 hr 01/31/21 14:48 Anion Gap 7 L Estim Creat Clear Calc 127.2 Estimated GFR > 60 Random Glucose 125 H Calcium 7.5 L D Total Bilirubin 2.9 H Direct Bilirubin 1.8 H AST 84 H ALT 28 Alkaline Phosphatase 233 H Total Protein 4.8 L Albumin 2.1 L Microbiology Microbiology Results: Microbiology 01/29/21 13:17 Blood Culture - Preliminary Blood - Venous No growth after 48 hours. 01/29/21 13:01 Blood Culture - Preliminary Blood - Venous No growth after 48 hours. Assessment and Plan (1) Abdominal pain: Status: Acute (2) Cirrhosis: Status: Acute (3) Alcohol intoxication: Status: Acute (4) Elevated LFTs: Status: Acute Assessment and Plan: 56 year old male with alcoholism here with abdominal discofort and found to have a large ascietes, colonic thickening that is nonspecific 1/Ascietes likely from alcohoic liver disease -Paracentesis shows no evidence of SBP -start Lasix and Aldacton 2/ Alcohol dependence, high risk for withdrawal -Phenobarbital protocol -Folic acid and thiamine supplement -CARE consult before dc 3/ Cirrhosis with ascites--following paracentesis, will need medical managment with diuretics -GI consult, also to comment on colonic thickening and kevin color stool, will be eval on ouptient basis for colonscopy 4/ Lactic acodis--not due to sepsis but rather d/t? Liver disease 5/ thrombocytopenia--mild d/t 6/Elevated blood glucose--check A1C 7/Hyponatremia--d/t alcohol, monitor 8/HypERkalemia--K, supplement, Aldactone DVT--Heparin Full code Plan of care discussed with girlfreind at bedside Quality Stroke Does the patient have a stroke diagnosis?: No VTE Prior VTE?: No VTE Risk Level:: Medical - low VTE Device Contraindication: Treatment Not Indicated VTE Drug Contraindication: Treatment Not Indicated
[2021-01-31] MEDS: Potassium Chloride ER 20 MEQ TAB.ER.PRT 40 MEQ PO (17:05)
[2021-02-01] MEDS: 0.9 % Sodium Chloride Flush 3 ML SYRINGE IVFLUSH ×2 (01:30→09:20)
[2021-02-01 03:44] VITALS: BP 114/78; PULSE 77; RESP 16; TEMP 36.4; O2SAT 97
[2021-02-01 06:11] LABS: Amylase Peritoneal Fluid 34
[2021-02-01 08:00] VITALS: BP 115/69; PULSE 78; RESP 16; TEMP 36.8; O2SAT 93
[2021-02-01 09:20] VITALS: BP 115/69; PULSE 78
[2021-02-01] MEDS: Spironolactone 25 MG TABLET PO (09:20)
[2021-02-01] MEDS: PHENobarbitaL 30 MG TABLET PO (09:21)
[2021-02-01] MEDS: Thiamine HCL 100 MG TABLET PO (09:22)
[2021-02-01] MEDS: Furosemide 20 MG TABLET PO (09:22)
[2021-02-01] MEDS: Folic Acid 1 MG TABLET PO (09:22)
[2021-02-01 11:03] LABS: Anion Gap 9 (12-20); Carbon Dioxide 35 mmol/L (22-29); Chloride 89 mmol/L (96-108); Potassium 3.1 mmol/L (3.3-5.1); Sodium 130 mmol/L (135-145)
[2021-02-01 12:00] VITALS: BP 108/80; PULSE 97; RESP 16; TEMP 36.9; O2SAT 95
[2021-02-01 12:31] LABS: Magnesium 1.7 mg/dL (1.6-2.6)
[2021-02-01] MEDS: Potassium Chloride Packet 20 MEQ PACKET 40 MEQ PO (12:57)
[2021-02-01 14:58] LABS: Estimated Average Glucose 71 mg/dL; Hemoglobin A1c % 4.1 %
== END 2021-02-01 16:06 | disposition home or self-care (01) | DRG 280 ==
LOC: HO.ED 16:03 → HO.EDOVER 18:10 → HO.S3 22:12
PROVIDERS: Radiology Diagnostic Radiology; Admitting Provider Internal Medicine; Emergency Provider Emergency Medicine; Visit Provider Internal Medicine
PROC: 0W9G3ZZ Drainage of Peritoneal Cavity, Percutaneous Approach (ICD-10-PCS; principal; 2021-01-30 11:00)
DX: K70.31 Alcoholic cirrhosis of liver with ascites (principal); K70.11 Alcoholic hepatitis with ascites; D69.6 Thrombocytopenia, unspecified; E87.2 Acidosis; F10.229 Alcohol dependence with intoxication, unspecified; F17.210 Nicotine dependence, cigarettes, uncomplicated; Z20.822 Contact with and (suspected) exposure to COVID-19; Z71.6 Tobacco abuse counseling
CPT/HCPCS: 36415; 49083; 74177; 80048; 80051; 80076; 80143; 82042; 82077; 82140; 82150; 82945; 83036; 83605; 83615; 83690; 83735; 85025; 85610; 85730; 87040; 87635; 88112; 89051; 93005; 96365; 96366; 96367; 96372; 96375; 99285; J0696; J2270; J2405; J2560; J3411; J3475; Q9967

== ENCOUNTER 2021-04-19 12:47 | Emergency (ER) | payer MEDICAID, SELFPAY ==
[2021-04-19 13:06] VITALS: BP 103/76; BP 128/76; PULSE 62; PULSE 70; RESP 18; TEMP 36.9; O2SAT 97; O2SAT 98; BMI 21.2
[2021-04-19 13:24] LABS: MANUAL DIFF FLAG SCAN; Neutrophils Percent Auto 52.8 % (45-73); PLT CLUMP 1; SCAN SMEAR FLAG 1
[2021-04-19 13:26] LABS: Basophils Absolute Auto 0.1 X10*3/uL (0.0-0.2); Basophils Percent Auto 0.7 % (0-2); Eosinophils Percent Auto 0.5 % (0-4); Hematocrit 44.3 % (42.0-52.0); Hemoglobin 15.3 g/dl (14.0-18.0); Imm Gran Abs Auto 0.03 X10*3/uL (0.00-0.03); Imm Gran Pct Auto 0.4 % (0.0-0.4); Lymphocytes Percent Auto 39.1 % (20-40); Mean Corpuscular HGB Conc 34.5 g/dl (31.0-36.0); Mean Corpuscular Hemoglobin 34.4 pg (27.0-33.0); Mean Corpuscular Volume 99.6 fL (80.0-98.0); Mean Platelet Volume 11.1 fL (9.4-12.4); Monocytes Absolute Auto 0.5 X10*3/uL (0.1-1.2); Monocytes Percent Auto 6.5 % (2-11); Red Blood Count 4.45 X10*6/uL (4.60-5.80); Red Cell Distribution Width 15.7 % (11.0-16.0); White Blood Count 7.6 X10*3/uL (4.8-10.8)
[2021-04-19 13:37] LABS: Ethanol 393 mg/dL
[2021-04-19 13:49] LABS: Platelet Count 92 X10*3/uL (160-400)
[2021-04-19 13:50] LABS: SLIDE REVIEW VERIFIED
--- NOTE | 2021-04-19 13:58 | ED.GENADULT ---
HPI - General Adult General Chief complaint: ETOH/Substance Use Stated complaint: GENERAL MALAISE W/SLIVER PER EMS Time Seen by Provider: 04/19/21 13:58 Source: patient Mode of arrival: EMS Limitations: no limitations History of Present Illness HPI narrative: 56-year-old male past medical history significant for cirrhosis, alcohol abuse disorder presenting to the emergency department with a chief complaint of I do not feel good . patient tells me that he is unable to describe how he is feeling right now, he tells me he is not having any sort of pain but he just does not feel well. He tells me that this morning he was drinking whiskey he had about 4-5 shots. But he tells me he was drinking all last night. He tells me he drinks hard liquor daily, but is unable to quantify how much he drinks a day. He tells me that he wants to stop drinking, however he wants to do this on his own without resources. He tells me he does not want detox. Tells me he does not have a history of alcohol withdrawal seizures. And he has never been hospitalized for alcohol intoxication / withdrawal. Patient denies chest pain, shortness of breath, fevers, chills, nausea, vomiting, abdominal pain. When I asked him why he is here he tells me I do not know I just want to go home I feel like I can stop drinking on my own. . Denies suicidal ideation and homicidal ideation Onset (ago): day(s) (1) Relieving factors: none Exacerbating factors: none Associated symptoms: denies other symptoms Treatments prior to arrival: none Related Data Previous Rx's Medication Instructions Recorded furosemide 20 mg tablet 20 mg PO DAILY #30 tab 02/01/21 spironolactone 25 mg tablet 25 mg PO DAILY #30 tab 02/01/21 Allergies Allergy/AdvReac Type Severity Reaction Status Date / Time No Known Allergies Allergy Verified 01/29/21 11:49 Review of Systems Review of Systems: Constitutional : No Fever, No Chills ENT/Mouth : No sore throat, No Rhinorrhea Eyes: No Eye Pain, No Swelling, No Redness Cardiovascular : No Chest Pain, No SOB Respiratory : No Cough, No Sputum Gastrointestinal : No Nausea, No Vomiting, No Diarrhea, No abdominal Pain Genitourinary : No Dysuria, No Hematuria Musculoskeletal : No joint pain, No Myalgias, No Joint Swelling Skin : No Skin Lesions, No rash Neuro : No Weakness, No Numbness Psych : No Anxiety, No Depression, No SI/HI/AH/VH Heme/Lymph: No Bruising, No Bleeding Endocrine : No Polyuria, No Polydipsia All other systems reviewed and are negative Yes all other systems are reviewed and are negative [facility] Past Medical History Attestation statement: The following information was validated with the patient. Source: old records reviewed and nursing notes reviewed Medical History Elevated LFTs ETOH abuse Smoker Family History Family History Father CAD (coronary artery disease) Social History Social History Household Members: Significant Other Housing: Apartment Do you presently have visiting nurse or other home services: No Alcohol intake: current Alcohol intake frequency: 3 or more drinks per day Alcohol type: hard liquor Patient Tobacco Use Status: Current everyday Tobacco user Tobacco use type: Cigarette Cigarette Packs Per Day: 1 Cigarettes Per Day: 20.0 Advance Directives: No Advance Directives Information Provided: Yes service: No Current occupational status: unemployed Physical Exam Vital Signs: Vital Signs: Last Vital Signs Temp 96.2 F L 04/19/21 15:28 Pulse 72 04/19/21 15:28 Resp 16 04/19/21 15:28 BP 130/80 04/19/21 15:28 Pulse Ox 98 04/19/21 15:28 BMI result Body Mass Index 21.2 VSS Appearance: Alert.? Oriented X3.? No acute distress.? Head: Normocephalic, atraumatic, no step-offs or deformities Eyes: Pupils equal, round and reactive to light.? ENT: Pharynx normal.? Neck: Normal inspection.? Neck supple.? CVS: Normal heart rate and rhythm.? Pulses normal.? Respiratory: No respiratory distress.? Breath sounds normal.? Abdomen: Soft and nontender.? Skin: Skin warm and dry.? Normal skin color.? Normal skin turgor.? Extremities: No lower extremity edema.? No calf ttp. 5/5 strength to bilateral upper and lower extremities Back: No midline tenderness, no C-spine tenderness, full range of motion, no CVA tenderness bilaterally Neuro: Oriented X 3.? No motor deficit.? No sensory deficit. Course Reevaluation(s) Reevaluation #1: I offered patient to speak to someone about resources, he agreed to this. He tells me he wants to stop drinking. Significant other at the bedside. Time: 13:00 Reevaluation #2: Fei spoke to the patient, patient states he wants to stop drinking at home. He does not want to go to a detox facility. Fei was able to provide patient therapy agencies that he will look into on his own. Patient is not having any pain at this time. He tells me he wants to leave. Labs show no acute infection. No electrolyte abnormalities. Ethanol level of 393. Time: 15:33 Reevaluation #3: Patient feeling much better after fluids. Patient has a safe ride home at the bedside. At this time I feel comfortable discharging patient home. Patient will follow up with PCP and has been given strict return precautions. Patient has been advised to stop drinking. Comfortable with discharge Time: 16:24 Medical Decision Making [facility] Narrative Medical decision making narrative: 1312 56-year-old male past medical history significant for cirrhosis, alcohol abuse disorder presenting to the ED w/ concerns of malaise after heavy drinking last night, and this morning. He reports having 4-5 shots of whiskey just prior to his arrival. He tells me he is not sure why he is here, and he wants to go home, he tells me he wants to stop drinking on his own. He does not want detox and he does not want to speak to anyone here today. He denies SI And HI. Upon physical examination vital signs are stable. S1-S2 appreciated free of murmurs. Lungs are clear. Abdomen soft nontender nondistended. Neuro exam nonfocal, no fasciculations or resting tremors noted. Patient appears well. Plan at this time is to do basic labs, drug screen, liver panel, UA. I will give patient fluids, he is not complaining of nausea or vomiting, so Zofran will be held at this time Medical Records Medical records reviewed: Yes I reviewed the patient's medical records. Lab Data Lab results reviewed: Yes I reviewed the patient's lab results. Result diagrams: 04/19/21 13:18 04/19/21 15:51 Labs: Lab Results 04/19/21 04/19/21 04/19/21 Range/Units 13:18 13:18 15:51 WBC 7.6 (4.8-10.8) X10*3/uL RBC 4.45 L (4.60-5.80) X10*6/uL Hgb 15.3 (14.0-18.0) g/dl Hct 44.3 (42.0-52.0) % MCV 99.6 H (80.0-98.0) fL MCH 34.4 H (27.0-33.0) pg MCHC 34.5 (31.0-36.0) g/dl RDW 15.7 (11.0-16.0) % Plt Count 92 L (160-400) X10*3/uL MPV 11.1 (9.4-12.4) fL Immature Gran % (Auto) 0.4 (0.0-0.4) % Neut % (Auto) 52.8 (45-73) % Lymph % (Auto) 39.1 (20-40) % Braxton % (Auto) 6.5 (2-11) % Eos % (Auto) 0.5 (0-4) % Baso % (Auto) 0.7 (0-2) % Lymph # (Auto) 3.0 (1.2-4.9) X10*3/uL Braxton # (Auto) 0.5 (0.1-1.2) X10*3/uL Eos # (Auto) 0.0 (0.0-0.4) X10*3/uL Baso # (Auto) 0.1 (0.0-0.2) X10*3/uL Abs Immat Gran (auto) 0.03 (0.00-0.03) X10*3/uL Absolute Neuts (auto) 4.0 (2.0-8.3) x10*3/uL Absolute Nucleated RBC 0.000 (0.0-0.012) X10*3/uL Nucleated RBC % (auto) 0.0 (0.0-0.2) /100WBC Smear Tech's Comments VERIFIED Sodium 144 (135-145) mmol/L Potassium 4.4 D (3.3-5.1) mmol/L Chloride 110 H D (96-108) mmol/L Carbon Dioxide 27 (22-29) mmol/L Anion Gap 11 L (12-20) BUN 6 L (9-16) mg/dL Creatinine 0.64 (0.5-1.4) mg/dL Estim Creat Clear Calc 117.1 Estimated GFR > 60 Random Glucose 93 (60-115) mg/dL Calcium 8.0 L D (8.4-10.2) mg/dL Total Bilirubin 0.6 (0.0-1.0) mg/dL Direct Bilirubin 0.3 (0.0-0.5) mg/dL AST 38 H D (5-37) U/L ALT 18 (0-40) U/L Alkaline Phosphatase 95 D (39-117) U/L Total Protein 6.1 L D (6.5-8.0) g/dL Albumin 3.2 L D (3.5-5.0) g/dL Ethyl Alcohol 393 H* mg/dL Critical Care Time Critical Care Time Critical Care Time: No Discharge Plan Discharge Clinical Impression: Alcoholic intoxication Patient Disposition: Home, Self-Care Instructions: Alcohol Intoxication (ED) Additional Instructions: Take your medications as prescribed. You refused to go to a detox facility today however we gave you resources Follow-up with your primary care provider this week. Return to the emergency department with new or worsening symptoms. In case of emergency call 911 Prescriptions: No Action spironolactone 25 mg Tablet 25 mg PO DAILY Qty: 30 RF: 0 furosemide 20 mg Tablet 20 mg PO DAILY Qty: 30 RF: 0 Referrals: Physician,Unknown J [Primary Care Provider] - 2 days
[2021-04-19] MEDS: 0.9 % Sodium Chloride 1,000 ML 999 ML IV (14:16)
[2021-04-19 15:28] VITALS: BP 130/80; PULSE 72; RESP 16; TEMP 35.7; O2SAT 98
--- NOTE | 2021-04-19 15:32 | MHC.RECOVSUP ---
Recovery Support note: Patient is a 56 year old Stateless speaking male who presented to [facility] ED due to alcohol use and not feeling well. Patient is known to this flex o writer operator from a previous consultation in January. Discussed the detrimental effects of alcohol use on health with patient and patient acknowledged. Patient reports he did not utilize any of the resources provided back in January. Patient reports he is not interested in receiving additional resources. Reviewed Martha Smalls, Recovery Coaching and outpatient therapy with patient. Patient declined meeting with a assistant field hockey coach however accepted information on outpatient therapy. Patient declined referral to [facility]. Discussed withdrawal symptoms and detox, encouraged patient to go to detox or return the the ED if withdrawal symptoms occur. Discussed medications for alcohol use disorder. Encouraged patient to think about what his recovery will look like and what he will utilize for support. Patient acknowledged. Patient reports no questions and states he would like to leave as soon as possible. Patient minimally engaged in consultation.
[2021-04-19 16:16] LABS: Alanine Aminotransferase 18 U/L (0-40); Albumin Level 3.2 g/dL (3.5-5.0); Alkaline Phosphatase 95 U/L (39-117); Anion Gap 11 (12-20); Aspartate Amino Transferase 38 U/L (5-37); Bilirubin Direct 0.3 mg/dL (0.0-0.5); Bilirubin Total 0.6 mg/dL (0.0-1.0); Blood Urea Nitrogen 6 mg/dL (9-16); Carbon Dioxide 27 mmol/L (22-29); Chloride 110 mmol/L (96-108); Creatinine Clr Calc Pharmacy 117.1; Estimated Glomerular Filt Rate > 60; Glucose Random 93 mg/dL (60-115); Potassium 4.4 mmol/L (3.3-5.1); Sodium 144 mmol/L (135-145); Total Protein 6.1 g/dL (6.5-8.0)
[2021-04-19 16:36] VITALS: TEMP 37
== END 2021-04-19 16:37 | disposition home or self-care (01) ==
PROVIDERS: Emergency Provider Emergency Medicine
DX: F10.129 Alcohol abuse with intoxication, unspecified (principal); Y90.8 Blood alcohol level of 240 mg/100 ml or more
CPT/HCPCS: 36415; 80048; 80076; 82077; 85025; 96360; 99284